=== PATIENT | male | born 1990 | race African-American/Black ===

== ENCOUNTER 2025-02-20 06:55 | Emergency (ER) | payer MEDICAID ==
[~2025-02-20] VITALS: Ht 177.8 cm; Wt 105.0 kg
[2025-02-20 07:04] VITALS: O2SAT 100
[2025-02-20] MEDS: ACETAMINOPHEN 325MG TABLET PO ONE (07:56)
[2025-02-20 08:04] VITALS: BP 140/88; PULSE 75; RESP 16; TEMP 37.3; O2SAT 100
== END 2025-02-20 08:05 | disposition home or self-care (01) ==
LOC: ER 06:55
DX: B34.9 Viral infection, unspecified (principal)
CPT/HCPCS: 99282